=== PATIENT | female | born 1975 | race African-American/Black ===

== ENCOUNTER 2016-06-26 09:34 | Emergency (ER) | payer OTHER, BC ==
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
[~2016-06-26 09:34] MED LIST: MULTIVITAMIN; NEXIUM PO; PHENERGAN12.5 MG; VICODIN 5/1 TAB 5/50 PO
== END 2016-06-26 09:44 | disposition home or self-care (01) ==
LOC: CFTX 09:34
DX: S13.4XXA Sprain of ligaments of cervical spine, initial encounter (principal); V49.40XA Driver injured in collision with unspecified motor vehicles in traffic accident, initial encounter; Y93.89 Activity, other specified; Y92.410 Unspecified street and highway as the place of occurrence of the external cause
CPT/HCPCS: 72040; 99283; 99284